=== PATIENT | female | born 1985 | race Caucasian/White ===

== ENCOUNTER 2016-07-16 00:09 | Inpatient (IN) | payer MEDICAID ==
[~2016-07-16] VITALS: Ht 170.2 cm; Wt 92.0 kg
[~2016-07-16 00:09] MED LIST: ALBU6.7H INH; HYDR-4246 PO; PREN-92 PO; [UNRECOGNIZED DRUG - CODE] PO
[2016-07-16] MEDS ORDERED: LR 1,000 ML IV PRN (00:11)
--- OUTSIDE RECORDS SUMMARY | 2016-07-16 00:13 | XMS REPORT | Continuity of Care Document ---
Author Author KEVIN [facility] Organization [facility] Address Unknown Phone Unavailable Support Name Relationship Address Phone JOHNSON CARPENTER ASSOCIATE STORE LEADER Caregiver [address] [place] [address] Unavailable GARCESJOHNSON Espinoza MD Caregiver [address] [place] [address] Unavailable GARCESJOHNSON Espinoza MD Caregiver [address] [place] [address] Unavailable DIANE MEEKS Next Of Kin [address] [place] [address] Insurance Providers Guarantor Gabriella Hartman Address [address] [place] [address] Email DENIED TO PORTAL Payer [facility] Community Plan Policy Number [id number] Subscriber's Name Gabriella Hartman Relationship 18 Self Effective Date 16 Expiration Date 16 Advance Directives Directive Response Recorded Date/Time Ordered Resuscitation Status Full Code 03/20/16 12:11pm Resuscitation Documents on File No 03/20/16 12:09pm DPOA for Healthcare Only No 03/20/16 3:07pm Living Will No 03/20/16 12:09pm Problems Active Problems Medical Problem Onset Date Status Leukocytosis Unknown Acute Myalgia Unknown Acute Post depression Unknown Post-tussive emesis Unknown Rhinovirus Unknown Acute Second trimester Unknown Medications Current Home Medications Medication Dose Units Route Directions Days Qty Instructions Start Date Albuterol Sulfate (Proventil Hfa 90 Mcg/Actuation) 200 Puff/6.7 G Inha 2 Puff Inhalation Every 4 Hours as needed for Shortness Of Air/Wheezing 1 Inhaler 03/20/16 Hydrocodone/Acetaminophen (Southlake 5-325 Tablet) 5-325 Tablet 1-2 Tab Oral Every 4 Hours as needed for Pain 20 Tablet 03/20/16 Phenylephrine/Dm/Acetaminop/Gg (Severe Cold & Flu Liquid) 355 Ml Liquid 10 Ml Oral Daily 03/20/16 Vits W-Ca,Fe,Fa(<1MG) ( Vitamins) 1 Tab Tablet 1 Tab Oral 03/25/12 Past Home Medications Medication Directions Ordered Status Fluoxetine Hcl (Prozac) 20 Mg Capsule, 20 Mg Oral 03/25/12 Discontinued Social History Social History Problem Response Recorded Date/Time Onset Date Status Reason for Hospitalization RESPIRATORY ISSUES WITH 03/20/2016 5: 35pm Not Applicable Not Applicable Chewing Tobacco Status No 03/25/2012 11:17am Not Applicable Not Applicable Hx Substance Use No 03/25/2012 11:17am Not Applicable Not Applicable Hx Alcohol Use No 03/25/2012 11:17am Not Applicable Not Applicable Has the pt used tobacco in the last 12 months Yes 03/20/2016 12:10pm Not Applicable Not Applicable Query Response Start Date Stop Date Smoking Status Former smoker Hospital Discharge Instructions Instructions: Care Instructions: I was in the hospital because (patient own words): I FEEL LIKE SHIT Discharge Diet: As tolerated Discharge Activity: As tolerate Follow Up Appointments: Dr. Garces as scheduled. Call the office on Wednesday to give us an update Pending Lab / Results: Will review at f/u apt Expected Signs/Symptoms: Cough/congestion/runny nose Notify Physician If: Worsening Sx During Business Hours:: Please call the physician's office at [phone] After Business Hours:: Please call [phone] and have the pack out operator page the physician. Pain Management/Treatment: [place]lake Pain Scale Utilized to Educate Patient: 0-10 Pain Scale Wound/Incision Care: None Condition at time of discharge: Good Plan of Care Discharge Date 03/20/16 6:20pm Disposition 01 DISCHARGED HOME, SELF-CARE Instructions/Education Provided DI for Respiratory Failure Prescriptions See Medication Section Care Plan and Goals See Discharge Instructions Section Functional Status Query Response Date Recorded Mobility Status Ambulatory March 20, 2016 12:15pm Assistive Devices None March 20, 2016 12:15pm Activity Limitations None March 20, 2016 12:15pm Feeding Ability Independent March 20, 2016 12:15pm Toileting Ability Independent March 20, 2016 12:15pm Grooming Ability Independent March 20, 2016 12:15pm Dressing Ability Independent March 20, 2016 12:15pm Driving Ability Independent March 20, 2016 12:15pm Housework Ability Independent March 20, 2016 12:15pm Meal Preparation Ability Independent March 20, 2016 12:15pm Stair Climbing Ability Independent March 20, 2016 12:15pm Ability to complete ADL's impeded by No change March 20, 2016 12:15pm Cognitive/Perceptual Impairments Impaired vision March 20, 2016 12:15pm Visual Assistive Devices Glasses With patient March 20, 2016 12:15pm Preferred Method of Learning Reading Listening March 20, 2016 12:15pm Allergies, Adverse Reactions, Alerts Allergen Type Severity Reaction Status Last Updated NKDA Allergy Active 03/22/12 Immunizations Query Response on File Recorded Date/Time Hx Influenza Vaccination Y 03/0403/20/16 12:10pm Hx Pneumococcal Vaccination No 03/20/16 12:10pm Hx Influenza Vaccination Y 03/0403/20/16 12:10pm Vital Signs Acute Vital Signs Vital Response Date/Time Temperature (Fahrenheit) 97.9 deg F (96.8 - 99.1) 03/20/2016 4:00pm Temperature (Calculated Celsius) 36.24335 degrees C (36.0 - 37.3) 03/20/2016 4:00pm Pulse Rate (adult) 88 bpm (60 - 100) 03/20/2016 4:00pm Respiratory Rate 20 breaths/min (10 - 20) 03/20/2016 4:00pm O2 Sat by Pulse Oximetry 99 % (90 - 100) 03/20/2016 4:00pm Oxygen Delivery Method Room Air 03/20/2016 4:00pm Blood Pressure 128/73 mm Hg 03/20/2016 4:00pm Blood Pressure Source Automatic Cuff 03/20/2016 4:00pm Height (Feet) 5 feet 03/20/2016 3:07pm Height (Inches) 8.00 inches 03/20/2016 3:07pm Weight (Kilograms) 83.000 kg 03/20/2016 12:08pm Body Mass Index (BMI) 27.8 03/20/2016 12:08pm Results Laboratory Results Test Name Result Units Flags Reference Collection Date/Time Result Date/ Time Comments White Blood Count 15.0 T/MM3 H 4.5-11.0 03/20/2016 12:41pm 03/20/2016 12 :49pm Red Blood Count 3.53 M/MM3 L 4.00-5.20 03/20/2016 12:41pm 03/20/2016 12: 49pm Hemoglobin 11.8 GM/DL L 04-0303/20/2016 12:41pm 03/20/2016 12:49pm Hematocrit 35.2 % L 36-46 03/20/2016 12:41pm 03/20/2016 12:49pm Mean Corpuscular Volume 99.7 UM3 80-100 03/20/2016 12:41pm 03/20/2016 12:49pm Mean Corpuscular Hemoglobin 33.4 UUG 26-34 03/20/2016 12:41pm 2015 12:49pm Mean Corpuscular Hemoglobin Concent 33.5 GM/DL 31-37 03/20/2016 12:41pm 03/20/2016 12:49pm RDW Standard Deviation 45.1 FL 36.9-50.2 03/20/2016 12:41pm 03/20/2016 12:49pm Platelet Count 175 T/MM3 130-400 03/20/2016 12:41pm 03/20/2016 12:49pm Mean Platelet Volume 11.4 UM3 9.4-12.4 03/20/2016 12:41pm 03/20/2016 12 :49pm Neutrophils % (Manual) 75.0 % H 33-66 03/20/2016 12:41pm 03/20/2016 1: 37pm Band Neutrophils % 1.0 % 0-6 03/20/2016 12:41pm 03/20/2016 1:37pm Lymphocytes % (Manual) 16.0 % L 23-45 03/20/2016 12:41pm 03/20/2016 1: 37pm Eosinophils % (Manual) 8.0 % H 0-4 03/20/2016 12:41pm 03/20/2016 1:37pm Band Neutrophils # 0.2 T/MM3 03/20/2016 12:41pm 03/20/2016 1:37pm Absolute Neutrophils (Manual) 11.3 T/MM3 H 1.8-7.7 03/20/2016 12:41pm 1:37pm Lymphocytes # (Manual) 2.4 T/MM3 1-4.8 03/20/2016 12:41pm 03/20/2016 1: 37pm Eosinophils # (Manual) 1.2 T/MM3 H 0-0.5 03/20/2016 12:41pm 03/20/2016 1 :37pm Red Cell Morphology Comment NORMAL 03/20/2016 12:41pm 03/20/2016 1: 37pm Icterus Index < 2 0-7 03/20/2016 12:41pm 03/20/2016 1:02pm Chemistry Specimen Hemolysis < 15 0-25 03/20/2016 12:41pm 03/20/2016 1:02pm 0-25: Specimen Exhibited No Hemolysis. Turbidity < 20 0-20 03/20/2016 12:41pm 03/20/2016 1:02pm Sodium Level 139 MEQ/L 134-144 03/20/2016 12:41pm 03/20/2016 1:02pm Potassium Level 4.2 MEQ/L 3.6-5 03/20/2016 12:41pm 03/20/2016 1:02pm Chloride Level 104 MEQ/L 98-107 03/20/2016 12:41pm 03/20/2016 1:02pm Carbon Dioxide Level 25 MEQ/L 22-30 03/20/2016 12:41pm 03/20/2016 1: 02pm Anion Gap 10 MEQ/L 5-15 03/20/2016 12:41pm 03/20/2016 1:02pm Blood Urea Nitrogen 8.0 MG/DL 7-17 03/20/2016 12:41pm 03/20/2016 1: 02pm Creatinine 0.5 MG/DL L 0.7-1.2 03/20/2016 12:41pm 03/20/2016 1:02pm BUN/Creatinine Ratio 16 RATIO 6-26 03/20/2016 12:41pm 03/20/2016 1: 02pm Glomerular Filtration Rate Calc 145 03/20/2016 12:41pm 03/20/2016 1 :02pm Glucose Level 88 MG/DL 65-110 03/20/2016 12:41pm 03/20/2016 1:02pm Calculated Osmolality 265 MOSM/KG 261-280 03/20/2016 12:41pm 2015 1:02pm Calcium Level 9.3 MG/DL 8.4-10.2 03/20/2016 12:41pm 03/20/2016 1:02pm Total Bilirubin 0.20 MG/DL 0.20-1.30 03/20/2016 12:41pm 03/20/2016 1: 02pm Alkaline Phosphatase 79 U/L 38-126 03/20/2016 12:41pm 03/20/2016 1: 02pm Total Protein 7.3 G/DL 6.3-8.2 03/20/2016 12:41pm 03/20/2016 1:02pm Albumin 3.8 G/DL 3.5-5.0 03/20/2016 12:41pm 03/20/2016 1:02pm Globulin 3.5 G/DL 2.4-3.6 03/20/2016 12:41pm 03/20/2016 1:02pm Albumin/Globulin Ratio 1.1 RATIO 1.1-2.2 03/20/2016 12:41pm 03/20/2016 1:02pm Aspartate Amino Transf (AST/SGOT) 22 U/L 14-36 03/20/2016 12:41pm 03/20 1:02pm Alanine Aminotransferase (ALT/SGPT) 28 U/L 9-52 03/20/2016 12:41pm 05/2015 1:02pm Adenovirus (PCR) NEGATIVE NEGATIVE 03/20/2016 1:05pm 03/20/2016 2: 41pm Coronavirus Type 229E (PCR) NEGATIVE NEGATIVE 03/20/2016 1:05pm 03/20 2:41pm Coronavirus Type HKU1 (PCR) NEGATIVE NEGATIVE 03/20/2016 1:05pm 03/20 2:41pm Coronavirus Type NL63 (PCR) NEGATIVE NEGATIVE 03/20/2016 1:05pm 03/20 2:41pm Coronavirus Type OC43 (PCR) NEGATIVE NEGATIVE 03/20/2016 1:05pm 03/20 2:41pm Human Metapneumovirus (PCR) NEGATIVE NEGATIVE 03/20/2016 1:05pm 03/20 2:41pm Enterovirus/Rhinovirus (PCR) DETECTED A NEGATIVE 03/20/2016 1:05pm 05/2015 2:41pm Influenza Virus Type A (PCR) NEGATIVE NEGATIVE 03/20/2016 1:05pm 05/2015 2:41pm Influenza Virus Type B (PCR) NEGATIVE NEGATIVE 03/20/2016 1:05pm 05/2015 2:41pm Parainfluenza Type 1 (PCR) NEGATIVE NEGATIVE 03/20/2016 1:05pm 2015 2:41pm Parainfluenza Type 2 (PCR) NEGATIVE NEGATIVE 03/20/2016 1:05pm 2015 2:41pm Parainfluenza Type 3 (PCR) NEGATIVE NEGATIVE 03/20/2016 1:05pm 2015 2:41pm Parainfluenza Type 4 (PCR) NEGATIVE NEGATIVE 03/20/2016 1:05pm 2015 2:41pm Respiratory Syncytial Virus (PCR) NEGATIVE NEGATIVE 03/20/2016 1:05pm 03/20/2016 2:41pm Bordetella parapertussis DNA (PCR) NEGATIVE NEGATIVE 03/20/2016 1: 05pm 03/20/2016 2:41pm Chlamydia pneumoniae DNA (PCR) NEGATIVE NEGATIVE 03/20/2016 1:05pm 2:41pm Mycoplasma pneumoniae (PCR) NEGATIVE NEGATIVE 03/20/2016 1:05pm 03/20 2:41pm Microbiology Results Procedure Source Organism/Result Collection Date/Time Result Date/Time Result Status Sputum Culture Sputum, Expectorated Sputum CULTURE INITIATED - RESULTS PENDING 03/20/2016 5:04pm 03/20/2016 5:15pm Preliminary Name: GABRIELLA HARTMAN Unit #: [id number] : 1985 Sex: F Admit Date: 03/20/16 Loc / Svc: MED Discharge Date: DIAGNOSTIC IMAGING REPORT Report #: [id number] [facility] IMER Villalobos EXAM: CHEST, PA LATERAL COMPARISON: 06/07/2010. HISTORY: ITS.REASON: RESP ILLNESS . FINDINGS: The cardiomediastinal silhouette is within limits of normal. The pulmonary vascularity appears unremarkable. Mild increased interstitial markings are noted. There is mild bronchial cuffing. The lungs are otherwise clear. There is no evidence for pleural effusion. There is no evidence for a pneumothorax. No osseous abnormalities are identified. IMPRESSION: Mild peribronchial cuffing with mild increased interstitial markings. This may be related to viral pneumonitis or atypical pneumonia such as mycoplasma. Clinical correlation is suggested. LOCATION OF DICT[place]: [facility] [place] Procedures No known history of procedures. Encounters Encounter Location Arrival/Admit Date Discharge/Depart Date Attending Provider Discharged Inpatient (obs) [facility] 03/20/16 12:02pm 03/20/16 6 :20pm JOHNSON GARCES MD
--- OUTSIDE RECORDS SUMMARY | 2016-07-16 00:13 | XMS REPORT | Continuity of Care Document ---
Author Author [facility]EVIN [facility] Organization [facility] Address Unknown Phone Unavailable Support Name Relationship Address Phone JOHNSON CARPENTER HARDNESS INSPECTOR Caregiver [address] [place] [address] Unavailable GARCESJOHNSON Espinoza MD Caregiver [address] [place] [address] Unavailable GARCESJOHNSON Espinoza MD Caregiver [address] [place] [address] Unavailable DIANE MEEKS Next Of Kin [address] [place] [address] Insurance Providers Guarantor Gabriella Hartman Address [address] [place] [address] Email DENIED TO PORTAL Payer [facility] Community Plan Policy Number [id number] Subscriber's Name Gabriella Hartman Relationship 18 Self [...] Shortness Of Air/Wheezing 1 Inhaler 03/20/16 Hydrocodone/Acetaminophen (Sarah 5-325 Tablet) 5-325 Tablet 1-2 Tab Oral [...] Hours:: Please call the physician's office at [phone] After Business Hours:: Please call [phone] and have the candy forming machine operator page the physician. Pain Management/Treatment: Sarah Pain Scale Utilized to Educate Patient: 0-10 Pain Scale Wound/Incision Care: None Condition at time of discharge: Good Plan of Care Discharge Date 03/20/16 6:20pm Instructions/Education Provided DI for Respiratory Failure Prescriptions See Medication Section Functional Status Query Response Date Recorded [...] - 99.1) 03/20/2016 4:00pm Temperature (Calculated Celsius) 36.10405 degrees C (36.0 - 37.3) 03/20/2016 4:00pm [...] 03/20/2016 12: 49pm Hemoglobin 11.8 GM/DL L -03/20/2016 12:41pm 03/20/2016 12:49pm Hematocrit 35.2 % L [...] Result Status Sputum Culture Sputum, Expectorated Sputum NORMAL RESPIRATORY IRISH 2015 5:04pm 03/22/2016 8:04am Final Name: GABRIELLA HARTMAN Unit #: [id number] : 1985 Sex: F Admit Date: 03/20/16 Loc / Svc: MED Discharge Date: DIAGNOSTIC IMAGING REPORT Report #: [id number] [place], [place] EXAM: CHEST, PA LATERAL COMPARISON: 06/07/2010. HISTORY: [...] Clinical correlation is suggested. LOCATION OF DICTATION: [facility] [place] . Procedures No known history of procedures. Encounters Encounter Location Arrival/Admit Date Discharge/Depart Date Attending Provider Departed Clinic [facility] 03/20/16 12:02pm 03/20/16 6:20pm JOHNSON GARCES MD
[2016-07-16] MEDS ORDERED: LIDOCAINE 1% (10mg/ml) 2ml SDV ID PRN (00:15)
[2016-07-16] MEDS ORDERED: CITRIC ACID/SODIUM CITRATE 30 ML PO ONE (00:15)
[2016-07-16] MEDS ORDERED: FAMOTIDINE 20mg IVPB 50 ML IV ONE (00:15)
[2016-07-16] MEDS ORDERED: CEFAZOLIN 2 GM in D5W 50ml 50 ML IV ONE (00:15)
[2016-07-16] MEDS ORDERED: METOCLOPRAMIDE 10mg/2ml INJECTION ONE (00:30)
[2016-07-16] MEDS ORDERED: FENTANYL 100mcg/2ml INJECTION ONE (00:30)
[2016-07-16] MEDS ORDERED: ONDANSETRON 4mg/2ml INJECTION ONE (00:30)
[2016-07-16] MEDS ORDERED: MORPHINE SULFATE PF 5mg/10ml VL (DURAMORPH) ONE (00:30)
[2016-07-16 00:37] LABS: BASOPHILS % (AUTO) 0.1 % (0-2); EOSINOPHILS # (AUTO) 0.3 T/MM3 (0-0.5); HCT - HEMATOCRIT 32.8 % (36-46); HGB - HEMOGLOBIN 11.1 GM/DL (12-16); IMMATURE GRANULOCYTE # (AUTO) 0.06 T/MM3 (0.00-0.03); IMMATURE GRANULOCYTE % (AUTO) 0.4 % (0.0-0.5); LYMPHOCYTES % (AUTO) 13.8 % (23-45); MEAN CORPUSCULAR HGB 33.7 UUG (26-34); MEAN CORPUSCULAR HGB CONC(MCHC 33.8 GM/DL (31-37); MEAN CORPUSCULAR VOLUME 99.7 UM3 (80-100); MEAN PLATELET VOLUME 11.7 UM3 (9.4-12.4); MONOCYTES # (AUTO) 0.9 T/MM3 (0-0.8); MONOCYTES % (AUTO) 5.9 % (0-9.0); NEUTROPHILS #(AUTO)-ABSOLUTE 11.4 T/MM3 (1.8-7.7); NEUTROPHILS % (AUTO) 77.8 % (33-66); RED BLOOD COUNT 3.29 M/MM3 (4.00-5.20); WBC - WHITE BLOOD COUNT 14.7 T/MM3 (4.5-11.0)
[2016-07-16 00:53] LABS: ANION GAP 5 MEQ/L (5-15); BUN/CREATININE RATIO 16 RATIO (6-26); CALCIUM 9.1 MG/DL (8.4-10.2); CHLORIDE 113 MEQ/L (98-107); CO2 - CARBON DIOXIDE 20 MEQ/L (22-30); CREATININE 0.5 MG/DL (0.7-1.2); GLOMERULAR FILTRATION RATE 145; GLUCOSE 101 MG/DL (65-110); POTASSIUM 4.1 MEQ/L (3.6-5); SODIUM 138 MEQ/L (134-144)
[2016-07-16] MEDS ORDERED: OXYTOCIN 30 UNIT in D5LR 500 ML IV SCH (01:57)
[2016-07-16] MEDS ORDERED: D5LR 1,000 ML IV SCH (01:57)
[2016-07-16] MEDS ORDERED: MILK OF MAGNESIA 30 ML SUSP PO PRN (02:00)
[2016-07-16] MEDS ORDERED: IBUPROFEN 800 MG TABLET PO PRN (02:00)
[2016-07-16] MEDS ORDERED: HYDROCORTISONE 2.5% CREAM 30 GM RECTALLY PRN (02:00)
[2016-07-16] MEDS ORDERED: DiphenhydrAMINE 25 MG CAPSULE PO PRN (02:00)
[2016-07-16] MEDS ORDERED: CALCIUM CARBONATE 500mg Chewable TAB PO PRN (02:00)
[2016-07-16] MEDS ORDERED: ACETAMINOPHEN 500 MG TABLET PO PRN (02:00)
--- NOTE | 2016-07-16 02:07 | ANESOB ---
Epidural/ Date/Time DATE: 07/16/16 TIME: 02:06 Preop Diagnosis Procedure: Plan: Spinal, GETA Height: 5 ' 8.00 " Weight: kg BMI: kg/m2 P:2 Heart Rate: 156 Medications & Allergies Inpatient Medications Current Medications Medications (Trade) Dose Ordered Sig/Trip Start Time Stop Time Status Last Admin Dose Admin Lactated Ringer's (Lactated Ringers) 1,000 ml @ 150 mls/hr Q6H40M PRN 07/16/16 00:11 07/16/16 02:02 DC 07/16/16 00:31 150 MLS/HR Lidocaine HCl 0.2 mg 0.2 mg PRN PRN 07/16/16 00:15 07/16/16 02:02 DC Oxytocin 30 unit/ Dextrose/Lactated Ringer's 503 ml @ 50 mls/hr Q10H4M 07/16/16 01:57 07/16/16 12:00 UNV Dextrose/Lactated Ringer's (D5lr) 1,000 ml @ 100 mls/hr Q10H 07/16/16 01:57 UNV Ibuprofen (Motrin) 800 mg Q8HMC 07/16/16 08:00 UNV Ibuprofen (Motrin) 800 mg Q8H PRN 07/16/16 02:00 UNV Acetaminophen/ Hydrocodone Bitart (Flowood 5/325) Do not exceed 10 tabs in... Q4H PRN 07/16/16 02:00 UNV Docusate Calcium (SURFAK 240 mg) 240 mg DAILY 07/16/16 09:00 UNV Simethicone (MYLICON 80 mg) 80 mg PCHS 07/16/16 09:30 UNV Acetaminophen (Tylenol Extra Strength) 1-2 TABS = 500-1,000 MG Q4H PRN 07/16/16 02:00 UNV Diphenhydramine HCl (Benadryl) 1-2 TABS = 25-50 MG Q6H PRN 07/16/16 02:00 UNV Magnesium Hydroxide (Mom) 30 ml HS PRN 07/16/16 02:00 UNV Hydrocortisone (Anusol-Hc) 1 applic PRN PRN 07/16/16 02:00 UNV Calcium Carbonate (TUMS Regular Strength) 1-2 TABS = 500-1,000 MG Q2H PRN 07/16/16 02:00 UNV Albuterol Sulfate (Proventil HFA 90 mcg/actuation) 200 Puff/6.7 G Inha, 2 PUFF INH Q4H PRN for SHORTNESS OF AIR/WHEEZING Hydrocodone/Acetaminophen (Flowood 5-325 Tablet) 5-325 Tablet, 1-2 TAB PO Q4H PRN for PAIN Phenylephrine/Dm/Acetaminop/GG (Severe Cold & Flu Liquid) 355 Ml Liquid, 10 ML PO DAILY, (Reported) Vits W-Ca,Fe,Fa(<1MG) ( Vitamins) 1 Tab Tablet, 1 TAB PO, ( Reported) Coded Allergies: NKDA (Verified Allergy, 03/22/12) Medical/Surgical History Anesthesia PMH: Reports: Asthma, Reflux (R/T ), Denies: *Angina, * Diabetes, *Dyspnea, *Hypertension, *WA, Anesthesia Reactions, Arthritis, Bld Transfusion Reaction, CHF, COPD, CVA/Stroke/TIA, Cancer, Clotting Problems, Glaucoma, Hepatitis, Hiatal Hernia, Malignant Hyperthermia, Pneumonia, Renal Disease, Seizures, Sleep Apnea, Thyroid Disease, Tuberculosis Smoking Status: Current some day smoker Does patient use chewing tobac: No Second Hand Exposure: No Substance Use Type: marijuana Alcohol Intake: none Anesthesia Adverse Reactions: FOUND none Hx of Motion Sickness: No Patient's Surgical History: section on 03/25/12 Complications During : Yes (vaginal bleeding) Pertinent Findings Laboratory Tests 07/16/16 00:31 Physical Exam Respiratory: Bilat breath sounds equal, Lungs clear Cardiovascular: Regular rate, rhythm Airway Assessment Mallampati Score: II TMD: 3 Fingerbreadths Neck Extension: Fair Overall Assessment: No Airway Concerns ASA: 2, E Discussion Discussed risks/options/alternatives of anesthesia. Patient consents. Nursing pain assessment noted. Present for Discussion: Present: Family Member Attestation Statement Prior to the delivery of any anesthetic medication, I examined the patient, developed the plan, obtained the patient's consent and discussed the risk and benefits of the procedure with the patient/guardian. If the note happens to be signed after anesthesia start time, it is only due to providing efficient care of the patient and documenting at a time when the computer is available. AURORA GUZMAN CRNA Jul 16, 2016 02:07
[2016-07-16] MEDS ORDERED: ONDANSETRON 4mg/2ml INJECTION IV PRN (02:15)
[2016-07-16] MEDS ORDERED: DiphenhydrAMINE 50 MG/ML INJECTION IV PRN (02:15)
[2016-07-16] MEDS ORDERED: NALOXONE 0.4mg/ml INJECTION IV PRN (02:15)
[2016-07-16] MEDS ORDERED: METOCLOPRAMIDE 10mg/2ml INJECTION IV PRN (02:15)
[2016-07-16] MEDS ORDERED: NALBUPHINE 10mg/ml INJECTION IV PRN (02:15)
[2016-07-16 02:17] LABS: ALKALINE PHOSPHATASE 148 U/L (38-126); ALT (SGPT) 20 U/L (9-52); ANION GAP 12 MEQ/L (5-15); AST (SGOT) 21 U/L (14-36); BUN/CREATININE RATIO 16 RATIO (6-26); CHLORIDE 111 MEQ/L (98-107); CO2 - CARBON DIOXIDE 17 MEQ/L (22-30); CREATININE 0.5 MG/DL (0.7-1.2); GLOMERULAR FILTRATION RATE 145; GLUCOSE 97 MG/DL (65-110); POTASSIUM 4.2 MEQ/L (3.6-5); SODIUM 140 MEQ/L (134-144)
[2016-07-16 03:40] LABS: HCT - HEMATOCRIT 30.4 % (36-46); HGB - HEMOGLOBIN 10.5 GM/DL (12-16); MEAN CORPUSCULAR HGB CONC(MCHC 34.5 GM/DL (31-37); MEAN CORPUSCULAR VOLUME 98.4 UM3 (80-100); MEAN PLATELET VOLUME 12.3 UM3 (9.4-12.4); RED BLOOD COUNT 3.09 M/MM3 (4.00-5.20); WBC - WHITE BLOOD COUNT 23.1 T/MM3 (4.5-11.0)
[2016-07-16] MEDS: IBUPROFEN 800 MG TABLET PO SCH ×3 (03:47→21:14)
[2016-07-16] MEDS: HYDROCODONE/APAP 5 mg/325 mg TABLET PO PRN ×5 (03:54→21:14)
[2016-07-16 03:57] VITALS: BP 137/68; PULSE 81; RESP 18; TEMP 98; O2SAT 100
[2016-07-16 06:00] VITALS: BP 126/63; PULSE 72; RESP 16; TEMP 98; O2SAT 99
--- NOTE | 2016-07-16 07:10 | HPF ---
ADMISSION NOTE I was paged at approximately 2330 hours on 07/15/2016 by Catrachito Perez MD. I called him and he was working the emergency room at [place], [place]. He reported to me that he had a Dr. Hodges patient there who was ruptured and bleeding. He wanted to know what he could give her for pain. He had called an ambulance and was sending her our way. He had checked the cervix, but he couldn't really tell if we were vertex or dilated. They had gotten heart tones in the 140s. I stated if she was stable and not an imminent delivery then she needed to come to [facility] as soon as possible. He rode with the patient in the ambulance. I got up and came in and arrived at [facility] prior to the patient. In addition, I had them call the surgery team and anesthesia and they were all here prior to the patient's arrival as well. I called Dr. Hodges and she came in and was here prior to the patient's arrival by EMS as well. As soon as the patient arrived, we put her in a triage room, put heart tone monitors on and jeremy admission lab, assessed her and then moved her to the room as fast as we could proceed safely. Dr. Hodges assessed the patient at 3 cm dilated in the triage room and vertex presentation. Dr. Hodges will dictate the operative report. KELLY
[2016-07-16] MEDS: DOCUSATE CALCIUM 240 MG CAPSULE PO SCH (07:45)
[2016-07-16] MEDS: SIMETHICONE 80 MG CHEWABLE TABLET PO CHEW SCH ×4 (07:46→22:00)
--- NOTE | 2016-07-16 08:37 | PNPDOC ---
Progress Note PPD0 Rubella: Immune GBS: Negative Blood Type:O pos Subjective 07/16/16 Lochia: Minimal Small blood in Bakri bag. 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 Bakri balloon in place. Recheck hemagram. Currently stable. (3) Anxiety Assessment & Plan: Lexapro. (4) Substance abuse affecting in third trimester, antepartum Assessment & Plan: She reports last MJ use was a week ago. She denies any other drug use this . JOHNSON GARCES MD Jul 16, 2016 08:37
--- NOTE | 2016-07-16 09:19 | ANESPO ---
Post-Op Note Date 07/16/16 Time: 09:18 Status Pt Participated in Evaluation: Pt participated in person Vital Signs Date Time Temp Pulse Resp B/P Pulse Ox O2 Delivery O2 Flow Rate FiO2 07/16/16 06:00 98.0 72 16 126/63 99 Room Air Respiratory Function: Airway patent, Regular respirations Cardiovascular Function: Regular pulse Mental Status: Alert/oriented Pain Level Intensity: 5 Hydration: Taking po fluids Complications during Recovery None apparent Follow-Up Instructions Instructions Per Surgeon AURORA GUZMAN CRNA Jul 16, 2016 09:19
[2016-07-16 09:30] LABS: HGB - HEMOGLOBIN 8.9 GM/DL (12-16); MEAN CORPUSCULAR HGB 33.7 UUG (26-34); MEAN CORPUSCULAR HGB CONC(MCHC 34.2 GM/DL (31-37); MEAN CORPUSCULAR VOLUME 98.5 UM3 (80-100); MEAN PLATELET VOLUME 12.3 UM3 (9.4-12.4); RED BLOOD COUNT 2.64 M/MM3 (4.00-5.20); WBC - WHITE BLOOD COUNT 21.6 T/MM3 (4.5-11.0)
[2016-07-16] MEDS: ESCITALOPRAM 10 MG TABLET PO SCH (09:38)
[2016-07-16] MEDS: CEFAZOLIN IV SCH ×4 (09:55→18:14)
[2016-07-16] MEDS: D5W IV SCH ×4 (09:55→18:14)
[2016-07-16 10:00] VITALS: BP 143/81; PULSE 72; RESP 14; TEMP 97.9; O2SAT 99
[2016-07-16 14:54] VITALS: BP 143/87; PULSE 87; RESP 18; TEMP 97.9; O2SAT 100
--- NOTE | 2016-07-16 15:49 | OPNOTEF ---
DATE OF OPERATION 07/16/2016 PREOPERATIVE DIAGNOSIS 1. 4, para 3 at 38 weeks 2 days gestational age. 2. Vaginal bleeding with suspected placental abruption. 3. Labor. POSTOPERATIVE DIAGNOSES 1. 4, para 3 at 38 weeks 2 days gestational age. 2. Vaginal bleeding with suspected placental abruption. 3. Labor. 4. Placenta accreta with hemorrhage. PROCEDURE 1. Repeat low transverse section. 2. tubal ligation via modified Shawna method. 3. Placement of Bakri uterine balloon. SURGEON Hattie Hodges MD BASKET OPERATOR Manjit Reeves MD ANESTHESIA Spinal by Elkin Beaver CRNA COMPLICATIONS None. EBL 2000 mL FINDINGS Viable male , cephalic position, clear fluids, Apgars 8/8, weight 3606 grams. Name "Fernando". Densely adherent placenta to the posterior and right lateral uterine wall, consistent with an accreta. Otherwise normal-appearing uterus, tubes and ovaries. INDICATIONS Dr. Reeves called me into the hospital because the patient was en route from [place] in an ambulance with bleeding and pain. I arrived at the hospital at the same time as the ambulance. Upon arrival, her perineum and upper legs were covered in blood. The pads she was lying on were saturated in blood. She had blood on her feet. Her cervix was 3 cm and high. She was felisha every 2-3 minutes. It was unclear whether she had SROM. heart tones still had moderate variability without decels, so I felt there was time to place a spinal. The patient consented to surgery and expressed her desire to still have her tubes tied. DESCRIPTION OF PROCEDURE The patient was taken back to the operating room where anesthesia was quickly obtained. She was placed in the dorsal supine position and a Barlow catheter was placed. She was found to have passed a pear-sized clot. She was quickly prepared and draped in the normal sterile fashion. A Pfannenstiel skin incision was created through her previous incision and carried down to the fascia. The fascia was incised in the midline and extended laterally with the Palomares scissors. The fascia was elevated and the underlying rectus muscles were dissected off. The peritoneum was entered bluntly and extended superiorly and inferiorly with good visualization of the bladder. The bladder blade was inserted. The bladder was well down on the uterus so a flap was not created. The uterus felt very taut while I was making the incision. The lower uterine segment was incised in a transverse fashion layer by layer with a scalpel and bluntly extended. The infant's head was delivered atraumatically. The nose and mouth were suctioned. The cord was clamped and cut. The infant was handed to Dr. Foss who was asked to attend due to the bleeding. The placenta was attempted to be delivered. I was able to deliver some of it but it was quickly apparent that it was more adherent than a normal placenta. The uterus was exteriorized, so we could see better what was going on. The majority of the placenta was finally able to be peeled off of the uterus. A sharp wide bovine curette was used to curette the posterior uterus where the placenta had been implanted. A small amount of placental tissue was removed. The left half of the uterine incision was closed with running locked 0 Monocryl. There appeared to still be more bleeding from the placental bed than what was normal as well as bleeding on the anterior uterus superior to the right edge of the incision. The superior edge was inverted so I could see the bleeding. Several mltyri-dc-evegys of 0 chromic were placed here to help control hemostasis. The rest of the bed was too wide to place multiple sutures. Instead, the decision was made to place a Bakri balloon. The patient's overall uterine tone was pretty good. The tail of the Bakri balloon was threaded down through the cervix and out through the vagina. We placed the patient in frog legged position and one of the nurses was able to grab the tail of the Bakri balloon through the vagina. The remainder of the uterus was closed with running locked 0 Monocryl. Good hemostasis was noted from the incision. The right fallopian tube was carried out to the fimbria. An avascular segment was grasped with a Colin. The segment was ligated with chromic. Each end of the segment was ligated with silk. The tube segment was excised with good hemostasis noted. This entire procedure was repeated with the patient's left fallopian tube. The uterus was then returned to the abdomen. The gutters were cleared of all clots and debris. The uterine incision was inspected one final time and still noted to be hemostatic. The Bakri balloon was then filled with 200 mL of normal saline. I palpated the front of the uterus while the balloon was being filled. The peritoneum was then closed with running 2-0 Vicryl. Hemostasis was obtained in the rectus muscles with the cautery. The fascia was closed with running 0 Vicryl. Hemostasis was obtained in the subcutaneous tissue with the cautery. Steven's fascia was closed with running 2-0 chromic. The skin was closed with tomy. Sponge, sharp and instrument counts were correct. The Bakri balloon was connected to a Barlow bag to monitor output. The output was minimal at the end of the case. The patient tolerated the procedure well. She was taken to the recovery room in good condition. KELLY
[2016-07-16 16:00] VITALS: BP 140/71; PULSE 72; RESP 16; TEMP 97.6; O2SAT 100
[2016-07-16 20:00] VITALS: BP 141/85; PULSE 86; RESP 16; TEMP 97.5; O2SAT 96
[2016-07-17] VITALS: BP 133/71; PULSE 77; RESP 16; TEMP 97.6; O2SAT 100
[2016-07-17] MEDS: CEFAZOLIN IV SCH ×4 (02:10→10:47)
[2016-07-17] MEDS: D5W IV SCH ×4 (02:10→10:47)
[2016-07-17] MEDS: HYDROCODONE/APAP 5 mg/325 mg TABLET PO PRN ×5 (02:40→22:45)
--- NOTE | 2016-07-17 02:45 | NUR ---
Shift summary: VSS. Fundus firm with scant bleeding. Incision dressing dry and intact. Barlow catheter remains in place with adequate output. Bakri balloon remains in place with 5-25 ml output Q4H. IVL in place. Ordered Cefazolin administered Q8H. Pain controlled with Ibuprofen and Steele. FOB at bedside. SCD's on. Pt. has ambulated and stood at bedside multiple times this shift. Attentive to needs.
[2016-07-17 04:08] VITALS: BP 132/77; PULSE 84; RESP 16; O2SAT 97
[2016-07-17 05:29] LABS: HCT - HEMATOCRIT 25.7 % (36-46); HGB - HEMOGLOBIN 8.4 GM/DL (12-16); MEAN CORPUSCULAR HGB 33.6 UUG (26-34); MEAN CORPUSCULAR HGB CONC(MCHC 32.7 GM/DL (31-37); MEAN CORPUSCULAR VOLUME 102.8 UM3 (80-100); MEAN PLATELET VOLUME 12.1 UM3 (9.4-12.4); RED BLOOD COUNT 2.5 M/MM3 (4.00-5.20); WBC - WHITE BLOOD COUNT 14.1 T/MM3 (4.5-11.0)
[2016-07-17] MEDS: IBUPROFEN 800 MG TABLET PO SCH ×2 (06:11→15:54)
[2016-07-17] MEDS ORDERED: NICOTINE 14 MG PATCH TD PRN (08:30)
--- NOTE | 2016-07-17 08:31 | PNPDOC ---
Progress Note PPD1 Rubella: Immune GBS: Negative Blood Type:O pos Subjective 07/17/16 Lochia: Minimal Half the fluid from the Bakri balloon was removed at 8:00, and her lochia continues to be minimal. Pain: Controlled Voiding: Barlow still in Place She would really like to go outside and smoke. Objective Vital Signs Date Time Temp Pulse Resp B/P Pulse Ox O2 Delivery O2 Flow Rate FiO2 07/17/16 04:08 84 16 132/77 97 07/17/16 00:00 97.6 Room Air Urine Output: Good General: Alert and Oriented Abdomen: Fundus Firm, Non-tender, Soft, Non-distended Incision: Clean/Dry/Intact, No Erythema Extremities: Non-tender Laboratory Item Value Date Time Hemoglobin 8.9 GM/DL L # 07/16/16 0911 Hemoglobin 8.4 GM/DL L 07/17/16 0411 Assessment (1) Status post repeat low transverse section (2) Placenta accreta in third trimester Assessment & Plan: With hemorrhage. We are working to remove the Bakri balloon. (3) Anxiety Assessment & Plan: Lexapro. (4) Substance abuse affecting in third trimester, antepartum Assessment & Plan: Nicotine patch JOHNSON GARCES MD Jul 17, 2016 08:31
[2016-07-17] MEDS ORDERED: NICOTINE PATCH REMOVAL TD PRN (08:45)
[2016-07-17] MEDS: ESCITALOPRAM 10 MG TABLET PO SCH (08:45)
[2016-07-17] MEDS: DOCUSATE CALCIUM 240 MG CAPSULE PO SCH (08:45)
--- NOTE | 2016-07-17 10:30 | NUR ---
Bakri Removal of Bakri, without difficulty and minimal bleeding noted. pericare completed. To restroom, pericare demonstrated, pad and panties applied, verbalizes understanding of self care.
[2016-07-17 10:31] VITALS: BP 139/69; PULSE 85; RESP 18; TEMP 97.8; O2SAT 99
--- NOTE | 2016-07-17 10:56 | NUR ---
CM THIS WORKER MET WITH PT ON THIS DATE. PT WAS SITTING IN BED HOLDING BABY. PT'S OTHER THREE CHILDREN AND MATERNAL GRANDMOTHER ALSO PRESENT. GRANDMOTHER AND CHILDREN STEPPED OUT OF THE ROOM AT THIS TIME TO ALLOW THIS WORKER TO SPEAK WITH PT. THIS WORKER INTRODUCED SELF AND ROLE OF CASE MANAGEMENT. PT REPORTED THAT SHE HAS GOOD SUPPORT FROM HER BOYFRIEND AND HER MOTHER. PT REPORTED THAT HER MOTHER LIVES IN [place] ALSO. PT REPORTED THAT SHE IS CURRENTLY RECEIVING WIC SERVICES AND WILL CONTINUE. PT REPORTED THAT SHE WOULD PLAN TO ADD BABY TO FOB INSURANCE. PT REPORTED THAT SHE HAD ALL NEEDED BABY SUPPLIES FOR BABY AT HOME. PT REPORTED THAT BABY WAS NOT A PLANNED AND SHE WAS ON CONTROL (MIRENA) AT THE TIME. THIS WORKER INQUIRED REGARDING ANY PREVIOUS OR CURRENT DCF INVOLVEMENT. PT DECLINED ANY INVOLVEMENT WITH DCF AND REPORTED THAT SHE HASN'T HAD ANY OF HER CHILDREN TAKEN AWAY. THIS WORKER INQUIRED REGARDING THE REPORT OF RECENT MARIJUANA USE. PT ADMITTED TO USING MARIJUANA LAST WEEK AND ONE OTHER TIME DURING . PT DENIED ANY OTHER DRUG USE. THIS WORKER EXPLAINED PROCESS FOR MANDATED REPORTING. PT CONCERNED ABOUT HAVING HER CHILDREN TAKEN AWAY "BECAUSE SHE SMOKED MARIJUANA TWICE." THIS WORKER ENCOURAGED PT TO WORK WITH DCF, BE HONEST AND FOLLOW ANY AND ALL RECOMMENDATIONS. PT WAS VISIBLY UPSET TEARS WHERE COMING FROM HER EYES. PT DENIED NEEDS FROM THIS WORKER AT THIS TIME. PT REPORTED THAT HER OTHER THREE CHIL[address]EN SEE [address]. GOMEZ AND THAT THIS BABY WILL SEE DR. TELLES FOR FOLLOW UP. THIS WORKER INQUIRED REGARDING PT'S ANXIETY. PT REPORTED THAT SHE DOESN'T LIKE TAKING PILLS BECAUSE THEY MAKE HER SICK. PT DENIED ANY DEPRESSION WITH ANY OF HER OTHER CHILDREN. THIS WORKER PROVIDED CONTACT INFORMATION FOR PT AND ENCOURAGE PT TO CONTACT THIS WORKER WITH ANY ADDITIONAL QUESTIONS OR NEEDS. PT EXPRESSED THAT SHE WOULD NOT HAVE ANY QUESTIONS. UPDATE WITH CHARGE NURSE AT THIS TIME.
--- NOTE | 2016-07-17 12:44 | NUR ---
DCF REPORT ONLINE REPORT MADE ON THIS DATE FOR DRUG USE DURING AND QUESTIONABLE DCF INVOLVEMENT. Addendum: 07/17/16 at 1245 by JYOTSNA CARDENAS Amended: Links added.
[2016-07-17] MEDS: SIMETHICONE 80 MG CHEWABLE TABLET PO CHEW SCH ×4 (13:00→23:07)
--- NOTE | 2016-07-17 15:00 | NUR ---
Care Assumed Report from Jacey Vegas RN. Care assumed.
[2016-07-17 15:50] VITALS: BP 144/90; PULSE 90; RESP 18; TEMP 98.1
--- NOTE | 2016-07-17 15:50 | NUR ---
Assessment VSS and assessment WNL. Pt denies MALIK, visual changes, and upper quadrant pain. States she has had no bleeding on her pad since removal of the Bakri balloon. Reports gas pain in her abdomen. Going for a walk after finished with assessment. Motrin given as ordered. IVL removed. Discussed POC with pt. Verbalized understanding.
--- NOTE | 2016-07-17 19:19 | NUR ---
Status Pt states she is doing well, and will be ready to go home as soon as she is able tomorrow morning. Rating pain 5/10 as burning at incision. Two norco given as requested. Simethicone given. Reports gas pain is improved. Has been up around room doing self and infant cares.
[2016-07-17 21:15] VITALS: BP 141/83; PULSE 80; RESP 18; TEMP 97.9
--- NOTE | 2016-07-17 22:45 | NUR ---
Status Pt rating pain 8/10, sudden onset in lower abdomen and around shoulder blades. Just finish [employer] about 20 mins ago. Instructed pt that it was most likely gas pain. [place] given as requested. Simethicone also given. Pt encouraged to walk to relieve gas pain. Was compliant and walked halls for about 15 mins. Reports that walking did improve pain.
[2016-07-18 00:10] VITALS: BP 123/60; PULSE 78; RESP 16; TEMP 98.1; O2SAT 98
--- NOTE | 2016-07-18 01:09 | NUR ---
Chart Check 24 hour chart check completed
[2016-07-18] MEDS: HYDROCODONE/APAP 5 mg/325 mg TABLET PO PRN (04:35)
[2016-07-18] MEDS: IBUPROFEN 800 MG TABLET PO SCH ×2 (04:35)
[2016-07-18 06:21] VITALS: BP 132/82; PULSE 87; RESP 18; TEMP 98.1; O2SAT 98
--- NOTE | 2016-07-18 10:09 | PNPDOC ---
Progress Note PPD2 Rubella: Immune GBS: Negative Blood Type:O pos Subjective 07/18/16 Lochia: Minimal Pain: Controlled Voiding: Voiding Doing well. Desires DC. Objective Vital Signs Date Time Temp Pulse Resp B/P Pulse Ox O2 Delivery O2 Flow Rate FiO2 07/18/16 06:21 98.1 87 18 132/82 98 Room Air Urine Output: Good General: Alert and Oriented Abdomen: Fundus Firm, Non-tender Incision: Clean/Dry/Intact, No Erythema Extremities: Non-tender Assessment (1) Status post repeat low transverse section Plan: Discharge Home, Continue PNV (2) Placenta accreta in third trimester Assessment & Plan: Scant bleeding. Doing well. (3) Anxiety Assessment & Plan: Lexapro. (4) Substance abuse affecting in third trimester, antepartum Assessment & Plan: Nicotine patch (5) Acute blood loss anemia Plan: Iron JOHNSON GARCES MD Jul 18, 2016 10:09
[2016-07-18] MEDS ORDERED: IBUP-1547 PO (10:11)
[2016-07-18] MEDS ORDERED: IRON150C5 PO (10:11)
[2016-07-18] MEDS ORDERED: HYDR-4246 PO (10:11)
[2016-07-18] MEDS ORDERED: IRON POLYSACCHARIDES COMPLEX 150 MG CAPSULE PO SCH (10:15)
== END 2016-07-18 10:20 | disposition home or self-care (01) | DRG 765 ==
LOC: MC 00:09
PROVIDERS: ADMIT Obstetrics & Gynecology; ATTEND Obstetrics & Gynecology
PROC: 0UB70ZZ Excision of Bilateral Fallopian Tubes, Open Approach (ICD-10-PCS; 2016-07-16)
PROC: 0W3R0ZZ Control Bleeding in Genitourinary Tract, Open Approach (ICD-10-PCS; 2016-07-16)
PROC: 10D00Z1 Extraction of Products of Conception, Low, Open Approach (ICD-10-PCS; principal; 2016-07-16 00:50)
DX: O45.93 Premature separation of placenta, unspecified, third trimester (principal); O72.0 Third-stage hemorrhage; D62 Acute posthemorrhagic anemia; O99.323 Drug use complicating pregnancy, third trimester; O43.213 Placenta accreta, third trimester; O34.211 Maternal care for low transverse scar from previous cesarean delivery; N85.8 Other specified noninflammatory disorders of uterus; O99.02 Anemia complicating childbirth; Z30.2 Encounter for sterilization; O99.344 Other mental disorders complicating childbirth; F41.8 Other specified anxiety disorders; F12.10 Cannabis abuse, uncomplicated; Z3A.38 38 weeks gestation of pregnancy; Z37.0 Single live birth
CPT/HCPCS: 36415; 36416; 80048; 80053; 85025; 85027; 86850; 86900; 86901; 86920; 86922